=== PATIENT | male | born 1940 | race African-American/Black ===

== ENCOUNTER 2021-01-08 08:13 | Emergency (ER) | payer MEDICARE, OTHER ==
[~2021-01-08] VITALS: Ht 167.6 cm; Wt 64.0 kg
[~2021-01-08 08:13] MED LIST: BIMA2.5D4 EACHEYE; BRIM10DR2 OP; FERR-63 PO; LISI-186 PO
[2021-01-08] MEDS ORDERED: SODIUM CHLORIDE 0.9% 500 ML IV ONE (08:45)
[2021-01-08 09:27] LABS: BASOPHILS % 1.4 % (0.0-2.0); EOSINOPHILS % 1.5 % (0.0-5.0); HEMATOCRIT. 36.3 % (42.0-52.0); HEMOGLOBIN. 11.3 g/dL (14.0-18.0); LYMPHOCYTES % 26.5 % (20.0-50.0); MEAN CORPUSCULAR VOLUME 73.8 fL (80.0-94.0); MEAN PLATELET VOLUME 10.5 fl (7.4-10.4); MONOCYTES % 8.7 % (2.0-8.0); NEUTROPHILS % 61.9 % (40.0-76.0); PLATELET 177 x1000/uL (130-400); RED BLOOD CELL COUNT 4.92 mill/uL (4.7-6.1); RED CELL DISTRIBUTION WIDTH 15.1 % (11.6-14.6)
[2021-01-08 09:30] LABS: PROTHROMBIN TIME 10.5 sec (9.6-11.0)
[2021-01-08 09:33] LABS: CHLORIDE 111 mEq/L (98-107)
[2021-01-08 09:37] LABS: ETHANOL BLOOD < 10 mg/dL
[2021-01-08 09:42] LABS: CREATINE KINASE 259 IU/L (39-308)
[2021-01-08 11:23] LABS: CLARITY URINE CLOUDY (CLEAR); COLOR URINE YELLOW (YELLOW); KETONES URINE TRACE (NEGATIVE); LEUKOCYTE ESTERASE URINE 3+ (NEGATIVE); NITRITE URINE NEGATIVE (NEGATIVE); OCCULT BLOOD URINE 2+ (NEGATIVE); PH URINE 5.5 (4.5-8.0); PROTEIN URINE TRACE (NEGATIVE); UROBILINOGEN URINE 0.2 E.U./dL (0.2-1.0)
[2021-01-08 11:31] VITALS: BP 142/81
[2021-01-08 11:44] LABS: *AMPHETAMINES SCREEN URINE NEGATIVE (NEGATIVE); *BARBITURATES SCREEN URINE NEGATIVE (NEGATIVE); *BENZODIAZEPINES SCREEN URINE NEGATIVE (NEGATIVE); *COCAINE SCREEN URINE NEGATIVE (NEGATIVE); CANNABINOID URINE SCREEN NEGATIVE (NEGATIVE); METHADONE URINE SCREEN NEGATIVE (NEGATIVE); OPIATES URINE SCREEN NEGATIVE (NEGATIVE)
[2021-01-08 11:45] LABS: PHENCYCLIDINE URINE SCREEN NEGATIVE (NEGATIVE)
== END 2021-01-08 11:53 | disposition short-term general hospital (02) ==
LOC: ER 08:34 → CANBEDREQ 11:38 → ER 11:53
DX: R41.82 Altered mental status, unspecified (principal); R41.0 Disorientation, unspecified; I10 Essential (primary) hypertension; I48.91 Unspecified atrial fibrillation; E86.0 Dehydration; Z79.899 Other long term (current) drug therapy
CPT/HCPCS: 36415; 70450; 71045; 80053; 80305; 80307; 80320; 80329; 81003; 82140; 82550; 83690; 83880; 84443; 84484; 85025; 85610; 87077; 87086; 87186; 93005; 96360; 96361; 99285; J7040; G0480